=== PATIENT | female | born 1995 | race Hispanic/Latino ===

== ENCOUNTER 2019-01-31 17:03 | Inpatient (IN) | payer OTHER, BC ==
[2019-01-31 17:55] LABS: Urine Appearance CLOUDY; Urine Bilirubin NEGATIVE (NEG); Urine Blood TRACE (NEG); Urine Color YELLOW; Urine Glucose TRACE (NEG); Urine Protein 2+ (NEG); Urine pH 6.5 (5.0-7.0)
[2019-01-31 18:14] LABS: Urine Bacteria >50 /HPF (<20); Urine RBC <5 /HPF (NONE SEEN)
[2019-01-31] MEDS ORDERED: PROMETHAZINE 25 MG/ML VIAL IM PRN (18:35)
[2019-01-31] MEDS ORDERED: ZOLPIDEM TARTRATE 5 MG TABLET PO PRN (18:39)
[2019-01-31 18:41] LABS: Urine Culture Reflex Order NOT NEEDED
[2019-01-31] MEDS ORDERED: D5LR 1,000 ML IV SCH (19:00)
[2019-01-31] MEDS ORDERED: CLINDAMYCIN INJ 600 MG in NA CHLORIDE 0.9% 50 ML IV SCH (19:00)
[2019-01-31] MEDS ORDERED: CEFTRIAXONE 1000 MG/VIAL ONE (19:19)
[2019-01-31] MEDS ORDERED: CLINDAMYCIN 600MG/D5W 0 MG/0 ML BAG IV ONE (19:19)
[2019-01-31] MEDS ORDERED: NA CHLORIDE 0.9% 50 ML IV ONE (19:20)
[2019-01-31] MEDS: ACETAMINOPHEN 500 MG TAB PO PRN (19:22)
[2019-01-31] MEDS ORDERED: CEFTRIAXONE/SWI 1gm 1 GM/10 ML SYR IVP SCH (20:00)
[2019-01-31] MEDS ORDERED: DOCUSATE NA/SENNA CONC 1 TAB PO PRN (23:20)
[2019-02-01] MEDS: D5LR 1,000 ML IV SCH (05:14)
[2019-02-01] MEDS: Ringers Lactate 1,000 ML IV SCH ×4 (05:43→19:40)
[2019-02-01 06:32] LABS: Absolute Lymphocytes (CBC) 1.1 K/uL (0.7-4.9); Absolute Monocytes 1.4 K/uL (0.1-1.3); Absolute Neutrophil 10.5 K/uL (1.8-8.0); Basophils % 0.2 % (0-1.3); Eosinophils % 0.6 % (0-4.4); Hematocrit 26.3 % (36.0-45.0); Lymphocytes % 8.4 % (15.3-44.8); MPV 8.1 fL (7.6-11.3); Monocytes % 10.8 % (3.3-12.3); RBC Red Blood Cell Count 3.56 M/uL (3.86-4.86)
[2019-02-01] MEDS ORDERED: CEFTRIAXONE 2,000 MG in NA CHLORIDE 0.9% 100 ML IV SCH (07:30)
[2019-02-01] MEDS: CEFTRIAXONE/SWI 1gm 1 GM/10 ML SYR IV SCH ×2 (07:30→21:00)
[2019-02-01] MEDS: ACETAMINOPHEN 500 MG TAB PO PRN ×2 (09:11→17:45)
--- NOTE | 2019-02-01 13:14 | PREOPHP ---
Date of Admission: 01/31/2019 History Of Present Illness: This is a 23-year-old female, patient of Dr. Payne's, 27 weeks pregn ant with suspected pyelonephritis. The patient was seen at Dr. Payne's office and there noted to have fever and just not feeling well, was sent to the emergency room. Flu testing was negative. Wh ite count at that point was 17,000. She was apparently then dismissed. Dr. Payne contacted me, suspected that she had early pyelonephritis and would probably need to be admitted. The patient came to Labor and Delivery, was indeed admitted. She has been on 2 g of Rocephin q.12 hours. The patien t is afebrile. She has no CVA or flank tenderness. She says she is feeling better. The pain that s he described is lower back, not flank or CVA tenderness. FHTs are normal. Vital signs have been goo d. We will keep her another 24 hours for IV antibiotic treatment, but at this point, she looks extre gin stable. White count this morning is 13,000. Urinalysis showed probable infection. Cultures ar e pending. I have informed the patient, she will probably be placed on the antibiotics on a daily ma intenance until the latter part of the to prevent recurrence. All other parameters are nor mal. Physical Examination: No obvious problems. The uterus is appropriate size. Extremities are clear. Pelvic exam is not don e. Plan: Basically, we will treat her another 24 hours and then dismiss. SHANE/ERICA Voice ID: [id number]
[2019-02-02] MEDS: D5LR 1,000 ML IV SCH ×2 (01:50→15:20)
[2019-02-02] MEDS: CEFTRIAXONE/SWI 1gm 1 GM/10 ML SYR IV SCH ×2 (08:15→21:00)
[2019-02-02] MEDS: Ringers Lactate 1,000 ML IV SCH ×2 (09:15→22:40)
[2019-02-02] MEDS: NITROFURAN MACRO 100 MG CAP PO SCH ×2 (09:28→21:00)
[2019-02-03] MEDS: D5LR 1,000 ML IV SCH (05:50)
[2019-02-03] MEDS: NITROFURAN MACRO 100 MG CAP PO SCH (08:00)
[2019-02-03] MEDS: CEFTRIAXONE/SWI 1gm 1 GM/10 ML SYR IV SCH (08:00)
--- NOTE | 2019-02-05 07:15 | DS ---
Date of Discharge: 02/03/2019 Hospital Course: This is a 23-year-old female, 27 weeks with probable pyelonephritis. She also had a mild cough. She was negative for flu. White count was 17,000, last check was down to 13, 000. The patient has never felt really sick, gets lower back discomfort in the middle, not even in t he CVA or flank area. She was admitted, started on Rocephin, has been placed on Rocephin and Macrobi d. Urine culture showed Escherichia coli sensitive to numerous agents. She will receive 1 more dose of Rocephin at 9 a.m. and then be dismissed. Given a prescription for Macrobid to be taken twice a day for 10 more days. She will report to Dr. Payne's office on Monday when the office is open a nd they will determine what future course of action to take. Diagnosis: At this point is intrauterine gestation, 27 weeks. Pyelonephritis, now responding and res ponded. Continue treatment on an outpatient basis. SHANE/ERICA Voice ID: [id number] Report ID: [id number]
--- NOTE | 2019-02-07 14:20 | PN ---
The last 3 temperatures have been normal; however, prior that last night, she had a temperature of 10 0.6. The patient states she has no pain whatsoever, feels pretty good, but I told her I think she ne eds to stay another 24 hours, so that we can make sure that there is no recurrence. She has agreed t o that. White count has come down. She has a little cough, but nothing significant. If she continu es to cough, we will probably get a shielded chest x-ray, but right now, I think that we are still pr obably dealing with pyelonephritis and even if it were some type of pulmonary process, she is getting antibiotics. Full discussion with patient. SHANE/ERICA Voice ID: [id number] Report ID: [id number]
== END 2019-02-03 09:40 | disposition home or self-care (01) | DRG 833 ==
LOC: L&D 17:03 → 2ND-WC 18:35
PROVIDERS: ADMIT Specialist; ATTEND Specialist
DX: O23.02 Infections of kidney in pregnancy, second trimester (principal); Z3A.27 27 weeks gestation of pregnancy; B96.20 Unspecified Escherichia coli [E. coli] as the cause of diseases classified elsewhere
CPT/HCPCS: 36415; 81001; 85025; 87077; 87086; 87088; 87186; 87804; J0696; J2550

== ENCOUNTER 2019-04-29 17:45 | Inpatient (IN) | payer OTHER, BC ==
[2019-04-29] MEDS ORDERED: PROMETHAZINE 25 MG/ML VIAL IV PRN (18:28)
[2019-04-29] MEDS ORDERED: BUTORPHANOL 1 MG/ML INJ IV PRN (18:28)
[2019-04-29] MEDS ORDERED: Ringers Lactate 1,000 ML IV PRN (18:28)
[2019-04-29 18:39] VITALS: BMI 29.9
--- NOTE | 2019-04-29 18:52 | P.PN ---
Date of Service: 04/29/19 Cytotec, 25mcg place vaginally near cx
[2019-04-29] MEDS ORDERED: hydrOXYzine HCl 25 MG TAB PO ONE (18:56)
[2019-04-29] MEDS ORDERED: Ringers Lactate 1,000 ML IV SCH (19:00)
[2019-04-29 19:02] LABS: Basophils % 0.3 % (0-1.3); Lymphocytes % 17.5 % (15.3-44.8); MPV 8.9 fL (7.6-11.3); RBC Red Blood Cell Count 4.66 M/uL (3.86-4.86)
[2019-04-29 19:12] LABS: Urine Appearance CLOUDY; Urine Bilirubin NEGATIVE (NEG); Urine Blood NEGATIVE (NEG); Urine Color YELLOW; Urine Glucose NEGATIVE (NEG); Urine Protein TRACE (NEG); Urine Specific Gravity 1.015 (1.005-1.030)
[2019-04-29 19:14] LABS: Urine Microscopic Reflex ORDER UMIC
[2019-04-29 19:47] LABS: Calcium Oxalate Crystals- Ur FEW (NONE SEEN); Urine Bacteria 20-50 /HPF (<20); Urine Culture Reflex Order REFLEXED; Urine RBC NONE SEEN /HPF (NONE SEEN)
[2019-04-29 20:19] LABS: Anisocytosis 1+; Blood Morphology Comment NOTED (NOT SEEN); Platelet Estimate ADEQ; Urine White Blood Cell Casts OK
--- NOTE | 2019-04-29 20:43 | PREOPHP ---
Date of Admission: 04/29/2019 History Of Present Illness: Ms. Crisostomo is a 23-year-old single female, 1, para 0, n ow at 39 and 5/7th weeks gestation. She is admitted for Cytotec induction of labor and delivery. Alannah tenorio has been followed by me during this with complications of admission for pyelonephritis an d mild anemia. She denies that she has been on Macrodantin for prophylaxis since treatment with IV a ntibiotics. Past Medical History: Please see record. Family History: Please see record. Review of Systems: She reports no recent cough, cold, fever, or chills. No recent nausea or vomiting. No breast knots or lumps. No bowel or bladder issues. The has been active. She denies any vaginal bleeding or spotting or UTI symptoms. Physical Examination: General: Reveals a pleasant female, in no apparent distress. Neck: Supple without adenopathy or thyromegaly. Lungs: Clear. Cardiac: Regular rate and rhythm without murmurs. Breasts: Not examined. Abdomen: Fundal height is approximately 38 cm, vertex presentation. heart tones well heard. Estimated weight approximately 7+ to 8+ pounds. Pelvic: Cervix noted to be 50% effaced, vertex at -2 station. Extremities: No cyanosis, clubbing, or edema. Impression: A 39+ week , history of pyelonephritis, and urinary suppression. Plan: Patient want to be admitted today for Cytotec induction of labor. Risks and benefits are disc ussed. She has signed operative permit in my presence. DOUG/ERICA Voice ID: [id number]
[2019-04-29 21:01] LABS: RPR (Rapid Plasma Reagin) NON-REACT (NON-REACT)
[2019-04-29] MEDS: miSOPROStol 100 MCG TAB VAG PRN (22:48)
[2019-04-30] MEDS: miSOPROStol 100 MCG TAB VAG PRN (03:07)
[2019-04-30] MEDS ORDERED: OXYTOCIN/LR 20 UNIT/1,000 ML BAG IV ONE (06:47)
--- NOTE | 2019-04-30 06:49 | P.PN ---
Cx 1 cm 70% vtx minus 2 station. AROM by placement of FSE, clear fluid noted. Will begin Pitocin induction of labor.
[2019-04-30] MEDS ORDERED: FENTANYL CITR 100 MCG/2 ML IV ONE ×2 (08:44→17:29)
[2019-04-30] MEDS ORDERED: FENTANYL/BUPIVACAINE/NS/PF 200 MCG/100 ML BAG EP PRN (08:45)
[2019-04-30] MEDS ORDERED: BUPIVACAINE 0.25% PF 30 ML VIAL IV ONE (08:47)
[2019-04-30] MEDS ORDERED: FENTANYL CITR 100 MCG/2 ML ONE (08:51)
[2019-04-30] MEDS ORDERED: BUPIVACAINE 0.25% PF 30 ML VIAL ONE (08:52)
[2019-04-30] MEDS ORDERED: LIDOCAINE 1% 20 ML MDV ONE (17:03)
[2019-04-30] MEDS ORDERED: CARBOPROST TROME 250 MCG/ML IM ONE (17:13)
[2019-04-30] MEDS ORDERED: METHYLERGONOVINE 0.2MG/ML AMP IM ONE (17:13)
[2019-04-30] MEDS ORDERED: GENTAMICIN 100 MG/100 ML BAG 100 ML IV SCH (17:45)
[2019-04-30] MEDS ORDERED: ACETAMINOPHEN 500 MG TAB ONE (18:19)
[2019-04-30] MEDS ORDERED: NA CHLORIDE 0.9% IVPB SCH (18:30)
[2019-04-30] MEDS ORDERED: GENTAMICIN IVPB SCH (18:30)
[2019-04-30] MEDS ORDERED: FAMOTIDINE 20 MG/2 ML VIAL IV ONE (21:42)
[2019-04-30] MEDS ORDERED: NA CIT/CITRIC AC 30 ML ORAL UDC ONE (21:42)
[2019-04-30] MEDS ORDERED: METOCLOPRAMIDE 10 MG/2mL INJ ONE (21:42)
--- NOTE | 2019-04-30 21:50 | P.PN ---
Pt still has a rim of cx despite pushing efforts x 30 minutes. I feel absolute cpd exists, will proceed with .
[2019-04-30] MEDS ORDERED: LIDOCAINE 2% W/EPI 1:200,000 MPF 20 ML VIAL IM ONE (21:52)
[2019-04-30] MEDS ORDERED: CLINDAMYCIN INJ 900 MG in NA CHLORIDE 0.9% 50 ML IV ONE (21:52)
[2019-04-30] MEDS ORDERED: CLINDAMYCIN 900MG/D5W 900 MG/50 ML IVPB IV ONE (21:53)
[2019-04-30] MEDS ORDERED: MORPHINE SULFATE/PF 1 MG/ML (10 ML AMP) ONE (22:00)
[2019-04-30] MEDS ORDERED: EPHEDRINE SULF 50 MG/ML VIAL ONE (22:00)
[2019-04-30] MEDS ORDERED: PROPOFOL 200 MG/20 ML VIAL IV ONE (22:00)
[2019-04-30] MEDS ORDERED: OXYTOCIN 10 UNIT/ML ML IV ONE ×2 (22:01→22:42)
[2019-04-30] MEDS ORDERED: NS 0.9% VIAL 10 ML ONE ×3 (22:02→22:31)
[2019-04-30] MEDS ORDERED: KETOROLAC 30 MG/ML INJ IV PRN (23:19)
[2019-04-30] MEDS ORDERED: Oxycodone HCl/Acetaminophen 1 TAB TAB PO PRN (23:19)
[2019-04-30] MEDS ORDERED: ONDANSETRON 4 MG (ODT) TAB PO PRN (23:19)
[2019-04-30] MEDS ORDERED: METHYLERGONOVINE 0.2MG/ML AMP IM PRN (23:19)
[2019-04-30] MEDS ORDERED: CARBOPROST TROME 250 MCG/ML IM PRN (23:19)
[2019-04-30] MEDS ORDERED: METHYLERGONOVINE 0.2 MG TAB PO PRN (23:19)
--- NOTE | 2019-04-30 23:27 | P.BOP ---
Preoperative diagnosis: 39 wk , failure to progress, chorioamnionitis Postoperative diagnosis: same, viable female infant Primary procedure: Bed Bug Exterminator: Bhavik Bell Estimated blood loss: 1000ml Specimen: placenta Anesthesia: epidural Drain(s): Urinary catheter Transferred to: Other (272) Condition: Good
[2019-04-30] MEDS ORDERED: OXYTOCIN/LR 20 UNIT/1,000 ML BAG IV SCH (23:45)
[2019-05-01] MEDS ORDERED: AMPICILLIN SODIUM 2 GM in NA CHLORIDE 0.9% 100 ML IVPB SCH ×2
[2019-05-01] MEDS ORDERED: AMPICILLIN SODIUM 2 GM/VIAL VIAL ONE (00:09)
[2019-05-01] MEDS: AMPICILLIN SODIUM 2 GM in NA CHLORIDE 0.9% 100 ML IVPB SCH ×2 (00:15→06:04)
[2019-05-01 05:24] LABS: Absolute Lymphocytes (CBC) 1.6 K/uL (0.7-4.9); Basophils % 0.2 % (0-1.3); Hematocrit 34.6 % (36.0-45.0); Lymphocytes % 6.4 % (15.3-44.8); MPV 8.7 fL (7.6-11.3); RBC Red Blood Cell Count 4.33 M/uL (3.86-4.86)
--- NOTE | 2019-05-01 07:00 | P.PN ---
S-No complaints O-Afeb, vs stable except elevated pulse. H/H with elevated wbc's, 25K, bandage dry, abdomen soft. A-normal post op except wbc's. Generally delivery helps clear chorioamnionitis , will give on-two more doses of antibiotics, recheck cbc this evening. Change to Cleocin/Rochephin P-As above, d/c ocasio noon, advance diet, ambulate.
[2019-05-01 07:04] LABS: Anisocytosis 1+; Blood Morphology Comment NOTED (NOT SEEN); Platelet Estimate ADEQ
[2019-05-01] MEDS: CEFTRIAXONE/SWI 2gm 2 GM/20 ML SYR IV SCH (09:00)
[2019-05-01] MEDS ORDERED: Gentamicin Inj 100 MG in NA CHLORIDE 0.9% 100 ML IVPB SCH (09:00)
[2019-05-01] MEDS: CLINDAMYCIN INJ 900 MG in NA CHLORIDE 0.9% 50 ML IV SCH ×2 (09:05→17:00)
[2019-05-01] MEDS: Oxycodone HCl/Acetaminophen 1 TAB TAB PO PRN (12:55)
[2019-05-01 15:30] LABS: Absolute Lymphocytes (CBC) 2.7 K/uL (0.7-4.9); Basophils % 0.1 % (0-1.3); Hematocrit 34.5 % (36.0-45.0); Lymphocytes % 11.3 % (15.3-44.8); MPV 8.4 fL (7.6-11.3); RBC Red Blood Cell Count 4.25 M/uL (3.86-4.86)
[2019-05-01 15:51] LABS: Platelet Estimate ADEQ; Platelets, Giant PRESENT
[2019-05-01 15:52] LABS: Anisocytosis 1+; Blood Morphology Comment NOTED (NOT SEEN)
--- NOTE | 2019-05-01 16:18 | P.PN ---
WBC's still signifcantly elevated but less bands and slight decrease in neutrophils. Pt afebrile, has done well today. Is on Rpcephin and Cleocin Iv.
[2019-05-01] MEDS ORDERED: SIMETHICONE 80 MG TAB PO PRN (16:23)
--- NOTE | 2019-05-01 19:11 | OP ---
Surgeon: Manuel Payne MD Anesthesiologist: Melissa Garza CRNA and Dr. Guy Yi. The patient had been on ampicillin and gentamicin for treatment of chorioamnionitis preoperatively, d id receive 1 dose of 900 mg of Cleocin for surgical prophylaxis. Preoperative Diagnoses: 1.39+ week . 2.Failure to progress in labor secondary to cephalopelvic disproportion. 3.Chorioamnionitis. Procedures: Epidural anesthesia, primary section, delivery of viable female . Postoperative Diagnoses: 1.39+ week . 2.Failure to progress in labor secondary to cephalopelvic disproportion. 3.Chorioamnionitis. Description Of Procedure: After a satisfactory level of epidural anesthesia was obtained, the patien t was prepped and draped in the usual fashion for abdominal surgery with Law catheter in place and SCDs in place. A Pfannenstiel skin incision was made and carried down to the fascia. The fascia was incised with a combination of sharp and blunt dissection. This was dissected away from the underlyi ng rectus muscles. These were divided in the midline. The peritoneum entered. Vesicouterine perito neum incised and a bladder flap was developed. A low-transverse uterine incision was made. An 8-bernabe nd 12-ounce female infant, 9 and 9 was delivered with marked molding of vertex. Milking of the cord towards the was performed. Cord was clamped, cut, and the placed in a warm er. Cord blood obtained. The placenta was manually removed. The uterus was then exteriorized. Bec ause of mild atony expected after a long labor course with obstructed labor, she was given a dose of Methergine IM at that time. The uterus was closed in 2 layers utilizing running nonlocking suture of 0 Vicryl, second layer was used to imbricate the first. Vesicouterine/bladder flap was reapproximat ed with running suture of 3-0 Vicryl. The uterus was returned to the peritoneal cavity, which was cl eaned of amniotic fluid, debris, and blood clot. The rectus muscles were approximated in midline wit h simple sutures of 0 Vicryl. The fascia was closed with running sutures of #1 Vicryl from either ma rgin to the middle. The skin was closed with interrupted subcutaneous sutures of 3-0 Vicryl, subderm al suture of 3-0 Vicryl, and subcuticular suture of 4-0 Monocryl. The patient was taken to the [facility] room in satisfactory condition with sponge and needle counts correct x2. Plant Production Worker Surgeon: MD DOUG Schaeffer/ERICA Voice ID: [id number] Report ID: [id number]
[2019-05-02] MEDS ORDERED: CLINDAMYCIN 900MG/D5W 900 MG/50 ML IVPB IV ONE (00:53)
[2019-05-02] MEDS: CLINDAMYCIN INJ 900 MG in NA CHLORIDE 0.9% 50 ML IV SCH ×3 (00:55→17:25)
[2019-05-02] MEDS: Oxycodone HCl/Acetaminophen 1 TAB TAB PO PRN ×3 (01:22→21:57)
[2019-05-02 04:32] LABS: Absolute Lymphocytes (CBC) 2.4 K/uL (0.7-4.9); Basophils % 0.1 % (0-1.3); Hematocrit 30.9 % (36.0-45.0); Lymphocytes % 10.3 % (15.3-44.8); MPV 8.6 fL (7.6-11.3); RBC Red Blood Cell Count 3.88 M/uL (3.86-4.86)
--- NOTE | 2019-05-02 09:09 | PN ---
Postoperatively patient has been diagnosed as having amnionitis on Rocephin and Cleocin. Temperature s have been under 100, but her white blood count is still elevated. Patient is passing gas, eating, ambulating. We will continue antibiotics for another 24 hours. Get a CBC tomorrow morning at 5 a.m. Once the white count is decreasing I think she can be dismissed and we will continue with some anti biotics when she goes home, but right now we will continue IV antibiotics until the white blood count drops below 20,000. SHANE/ERICA Voice ID: [id number] Report ID: [id number]
[2019-05-02] MEDS: CEFTRIAXONE/SWI 2gm 2 GM/20 ML SYR IV SCH (09:30)
[2019-05-02] MEDS ORDERED: Ringers Lactate 1,000 ML IV ONE (16:17)
[2019-05-02 20:18] LABS: HBsAG Nonreactive (Nonreactive)
[2019-05-03] MEDS: CLINDAMYCIN INJ 900 MG in NA CHLORIDE 0.9% 50 ML IV SCH (01:00)
[2019-05-03] MEDS: Oxycodone HCl/Acetaminophen 1 TAB TAB PO PRN (04:06)
[2019-05-03 05:49] LABS: Absolute Lymphocytes (CBC) 3.2 K/uL (0.7-4.9); Basophils % 0.5 % (0-1.3); Hematocrit 28.6 % (36.0-45.0); Lymphocytes % 20.1 % (15.3-44.8); MPV 8.7 fL (7.6-11.3); RBC Red Blood Cell Count 3.55 M/uL (3.86-4.86)
[2019-05-03 08:04] VITALS: BP 110/57; TEMP 97.2
--- NOTE | 2019-05-06 09:35 | DS ---
Date of Discharge: 05/03/2019 Hospital Course: Postoperatively the patient has done quite well. White blood count now under 20,00 0. Patient has not had a temperature over 99 in the last 24-36 hours. All temperatures have been in the 98 or even 97 range. Incision is good, she is ambulating, requesting dismissal. She will be di smissed this morning to continue taking temperatures every 4 hours over the weekend call Labor and [facility] if any temperature hits 100 degrees or more. She is dismissed with tramadol for analgesia, Cl eocin 300 mg to be taken 4 times a day for 5 days, Augmentin 1000 XL to be taken twice a day for 7 da ys. She has an appointment to see Dr. Payne on Monday of next week. She will call them on and given them a status report and of course if any problems over the weekend, she will call us. She has had her Tdap immunization. She has had no post spinal block problems. Flu instructions give n. She is Rh positive and immune to Rubella. Final Diagnoses: 1.Term intrauterine . 2. section. 3.Chorioamnionitis now responding to treatment. Continued outpatient treatment. SHANE/ERICA Voice ID: [id number] Report ID: [id number]
== END 2019-05-03 09:25 | disposition home or self-care (01) | DRG 786 ==
LOC: 2ND-WC 17:45
PROVIDERS: ADMIT Specialist; ATTEND Specialist
PROC: 3E0P7VZ Introduction of Hormone into Female Reproductive, Via Natural or Artificial Opening (ICD-10-PCS; principal; 2019-04-29)
PROC: 10907ZC Drainage of Amniotic Fluid, Therapeutic from Products of Conception, Via Natural or Artificial Opening (ICD-10-PCS; 2019-04-29)
PROC: 3E033VJ Introduction of Other Hormone into Peripheral Vein, Percutaneous Approach (ICD-10-PCS; 2019-04-29)
PROC: 10D00Z1 Extraction of Products of Conception, Low, Open Approach (ICD-10-PCS; 2019-04-30)
DX: O65.4 Obstructed labor due to fetopelvic disproportion, unspecified (principal); O41.1230 Chorioamnionitis, third trimester, not applicable or unspecified; O62.2 Other uterine inertia; Z3A.39 39 weeks gestation of pregnancy; Z37.0 Single live birth
CPT/HCPCS: 36415; 81003; 81015; 85025; 86592; 86850; 86900; 86901; 87086; 87088; 87340; 88307; J0290; J0595; J0696; J1580; J2210; J2550; J2590; J2704; J2765; J3010

== ENCOUNTER 2020-06-19 06:21 | Day surgery (SDC) | payer OTHER, BC ==
[2020-06-17 16:35] LABS: Absolute Lymphocytes (CBC) 2.3 K/uL (0.7-4.9); Basophils % 0.5 % (0-1.3); Hematocrit 39.8 % (36.0-45.0); Lymphocytes % 31.4 % (15.3-44.8); MPV 8.2 fL (7.6-11.3); RBC Red Blood Cell Count 4.97 M/uL (3.86-4.86)
[2020-06-17 16:50] LABS: ALT/SGPT 120 U/L (12-78); AST/SGOT 43 U/L (15-37); Albumin 4.2 g/dL (3.4-5.0); Alkaline Phosphatase 77 U/L (45-117); Amylase 76 U/L (25-115); BUN Blood Urea Nitrogen 11 mg/dL (7-18); Bicarbonate 30 mmol/L (21-32); Bilirubin Direct 0.2 mg/dL (0-0.2); Glucose Level 82 mg/dL (74-106); Lipase 167 U/L (73-393); Potassium 3.6 mmol/L (3.5-5.1); Protein, Total 8.5 g/dL (6.4-8.2); Sodium Level 141 mmol/L (136-145)
--- NOTE | 2020-06-17 17:31 | RAD REPORT ---
EXAM DESCRIPTION: RAD - Chest Pa And Lat (2 Views) - 06/17/2020 4:22 pm CLINICAL HISTORY: pre op Chest pain. COMPARISON: No comparisons FINDINGS: The lungs are clear. The heart is normal in size. No displaced fractures. IMPRESSION: No acute or concerning finding suspected.
[2020-06-19 06:48] LABS: Specific Gravity >= 1.030 (1.005-1.030)
[2020-06-19] MEDS ORDERED: Ringers Lactate 1,000 ML IV ONE (07:10)
[2020-06-19] MEDS ORDERED: CEFOXITIN/SWI 1gm 1 GM/10 ML SYR ONE (07:10)
[2020-06-19] MEDS ORDERED: FENTANYL CITR 100 MCG/2 ML ONE ×2 (07:27→08:29)
[2020-06-19] MEDS ORDERED: propofoL 200 MG/20 ML VIAL IV ONE (07:27)
[2020-06-19] MEDS ORDERED: MIDAZOLAM HCL 2 MG/2 ML INJ ONE (07:28)
[2020-06-19] MEDS ORDERED: LIDOCAINE 1% MPF 5 ML VIAL ONE (07:28)
[2020-06-19] MEDS ORDERED: ROCURONIUM 50 MG/5 ML VIAL IV ONE (07:28)
--- NOTE | 2020-06-19 08:22 | P.BOP ---
Preoperative diagnosis: acute cholecystitis, symptomatic cholelithiasis Postoperative diagnosis: same Primary procedure: Laparoscopic cholecystectomy Catalyst Unit Operator: CARA ORTIZ ([employer]) Estimated blood loss: <10cc Specimen: gb Findings: as above Anesthesia: General Complications: None Transferred to: Recovery Room Condition: Good
[2020-06-19] MEDS ORDERED: GLYCOPYRROLATE 0.2 MG/ML SYR ONE (08:26)
[2020-06-19] MEDS ORDERED: ONDANSETRON 4 MG/2 ML VIAL ONE (08:27)
[2020-06-19] MEDS ORDERED: NEOSTIGMINE 1 MG/ML -5 ML ONE (08:27)
[2020-06-19] MEDS ORDERED: KETOROLAC 30 MG/ML INJ ONE (08:27)
[2020-06-19] MEDS ORDERED: dexAMETHasone 4 MG/ML VIAL ONE (08:28)
--- NOTE | 2020-06-19 08:59 | OP ---
Date of Procedure: 06/19/2020 Surgeon: Sal Michel MD Motel Front Desk Clerk: Lanette Boyer. Preoperative Diagnosis: Acute cholecystitis, symptomatic cholelithiasis. Postoperative Diagnosis: Acute cholecystitis, symptomatic cholelithiasis. Procedures Performed: Laparoscopic cholecystectomy. Estimated Blood Loss: Less than 10 cc. Specimen: Gallbladder. Indications: This is the case of a 24-year-old patient, who comes to us with above diagnosis. Fully explained the benefits, alternatives, and risks laparoscopic, possible open cholecystectomy, which i nclude, but not limited to infection, bleeding, damage to adjacent structures, anesthesia complicatio n, choledocholithiasis, bile leak, pancreatitis, ND, and even . She also understands this may n ot relieve any symptoms. She might need more than one surgical intervention. She understood and sig ramona the consent. Procedure In Detail: The patient brought to the operating room and placed in supine position. Anest hesia was done without complication. A time-out was called. Abdomen was prepped and draped in a deisi rile fashion. Marcaine 0.5% was injected for local anesthetic followed by sharp incision of the skin in the infraumbilical region. Incision was carried down to fascia, which was opened under direct vi agata. Peritoneum was encountered, opened under direct vision. Vicryl #1 placed inside the fascia. Denisse trocar was carefully introduced. Pneumoperitoneum was obtained. I placed 3 more trocars 5 mm each one of them in the right upper quadrant using same technique, which consisted of local anesthet ic, sharp incision of the skin, introduction of the trocars under direct vision. This allowed me to put a grasper in the fundus of the gallbladder, another grasper in the infundibulum retracting the ga llbladder in the inferolateral fashion exposing the triangle of Calot obtaining critical view of safe ty. Cystic duct and cystic artery were clearly isolated free circumferentially and a connection betw een those and the gallbladder were clearly identified. I proceeded to ligate those by using at least 3 clips proximal and 1 clip distal, ligation in middle. Same was done with the cystic artery. No b ile leak. No bleeding. The gallbladder was removed from liver using Bovie cauterizer and removed fr om abdominal cavity using EndoCatch through the umbilical incision. The area was inspected once agai n. No bile leak. No bleeding. At that moment, I proceeded to remove the trocars under direct visio n. Deflated the pneumoperitoneum, closed the fascia with #1 Vicryl. Irrigated subcutaneous tissue a nd closed with 3-0 chromic and the skin with 3-0 chromic. Sponge count and instrument counts correct . Patient tolerated the procedure well. Patient is awake, to recovery in stable condition. NAGA/ERICA Voice ID: [id number] Report ID: [id number]
--- NOTE | 2020-06-19 09:03 | DS ---
Diagnosis: Acute cholecystitis, symptomatic cholelithiasis. Procedure: Laparoscopic cholecystectomy. Disposition: Home. Activity: As tolerated, no heavy lifting. Plan: Follow up in my office in 1 week. Call for appointment [phone]. Keep area dry for 48 hours, then may shower. Keep Steri-Strip intact. Medications: Bactrim DS b.i.d., Tylenol No. 3 q.4 hours p.r.n. pain. MARIS Voice ID: [id number] Report ID: [id number]
[2020-06-19] MEDS ORDERED: CODEINE 30MG/APAP 300MG TAB ONE (09:33)
[2020-06-19 13:22] VITALS: BP 110/68; TEMP 96.4; O2SAT 98
== END 2020-06-19 10:00 | disposition home or self-care (01) ==
LOC: OR 06:21
PROVIDERS: ATTEND Surgery
PROC: 0FT44ZZ Resection of Gallbladder, Percutaneous Endoscopic Approach (ICD-10-PCS; principal; 2020-06-19 07:30)
DX: K80.12 Calculus of gallbladder with acute and chronic cholecystitis without obstruction (principal); Z20.828 Contact with and (suspected) exposure to other viral communicable diseases; Z82.49 Family history of ischemic heart disease and other diseases of the circulatory system
CPT/HCPCS: 85025; 80048; 36415; 82150; 81025; 80076; 88304; 83690; 71046; 47562; U0002; J2704; J1100; J2250; J3010 ×2; J2710; J7120; J2405